=== PATIENT | female | born 1995 | race Caucasian/White ===

== ENCOUNTER 2020-09-22 21:36 | Emergency (ER) | payer OTHER ==
[~2020-09-22 21:36] MED LIST: NITROFURANTOIN100 MG PO
[2020-09-23] MEDS ORDERED: NASONEX17 GM (02:27)
[2020-09-23] MEDS ORDERED: IBUPROFEN800 MG PO (02:27)
[2020-09-23] MEDS ORDERED: PROAIR DIGIHAL90 MCG INH (02:27)
== END 2020-09-23 02:32 | disposition home or self-care (01) ==
LOC: ER1 21:36
DX: U07.1 COVID-19 (principal)
CPT/HCPCS: 0240U; 99283

== ENCOUNTER 2020-12-15 23:37 | Emergency (ER) | payer OTHER ==
[~2020-12-15 23:37] MED LIST changes: +IBUPROFEN800 MG PO; +NASONEX17 GM; +PROAIR DIGIHAL90 MCG INH
[2020-12-16 01:54] LABS: HEMOGLOBIN 14.6 gm/dl (12.3-15.3); RED BLOOD COUNT 5.08 M/UL (4.00-5.10); WHITE BLOOD COUNT 12.1 K/UL (4.5-11.0)
[2020-12-16 02:07] LABS: BUN/CREATININE RATIO 11 (0-10)
== END 2020-12-16 05:08 | disposition home or self-care (01) ==
LOC: ER1 23:37
PROVIDERS: Physician Assistant Medical
DX: R07.89 Other chest pain (principal)
CPT/HCPCS: 71045; 80053; 82550; 82553; 83874; 84484; 85025; 85379; 93005; 99285

== ENCOUNTER 2021-03-14 19:48 | Emergency (ER) | payer OTHER | END 2021-03-14 21:00 | disposition left against medical advice (07) | LOC: ER1 19:48 | DX: M54.2 Cervicalgia (principal); M25.511 Pain in right shoulder | CPT/HCPCS: 99282 ==